=== PATIENT | male | born 1970 | race Two or more races ===

== ENCOUNTER → 2016-10-16 | Outpatient (REF) | payer BC | LOC: M SMT 12:58 | PROVIDERS: ATTEND Nurse Practitioner Women's Health | DX: R31.29 Other microscopic hematuria (principal) ==

== ENCOUNTER → 2018-12-13 | Outpatient (REF) | LOC: M LAB LCGH 15:04 | PROVIDERS: ATTEND Surgery | DX: K81.1 Chronic cholecystitis (principal) ==

== ENCOUNTER → 2024-04-30 | Outpatient (REF) | payer BC | LOC: M SFHCDERM 17:27 | PROVIDERS: ATTEND Physician Assistant | DX: D49.2 Neoplasm of unspecified behavior of bone, soft tissue, and skin (principal) ==